=== PATIENT | female | born 1945 | race Caucasian/White ===

== ENCOUNTER 2020-02-23 08:24 | Day surgery (SDC) | payer MEDICARE, BC ==
[~2020-02-23 08:24] MED LIST: Acetaminophen/HYDROcodone 325-5 MG Tab PO PRN; Lactated Ringers 1,000 ML IV SCH
[2020-02-23] MEDS: Lactated Ringers 1,000 ML IV SCH (09:51)
[2020-02-23] MEDS: ceFAZolin 1 GM in Sodium Chloride 0.9% 50 ML IV ONE (10:32)
[2020-02-23] MEDS ORDERED: Lidocaine 0.5% 50 ML SDV ONE (11:11)
[2020-02-23] MEDS ORDERED: Ondansetron 4 MG/2 ML SDV ONE (11:11)
[2020-02-23] MEDS ORDERED: Midazolam 1 MG/ML 2 ML SDV ONE (11:11)
[2020-02-23 11:34] VITALS: BP 161/81; PULSE 52
[2020-02-23] MEDS: ceFAZolin 1 GM Vial ONE (13:16)
== END 2020-02-23 12:10 | disposition home or self-care (01) ==
LOC: LB.SDS 08:24
PROVIDERS: ATTEND Orthopaedic Surgery
DX: G56.01 Carpal tunnel syndrome, right upper limb (principal); I10 Essential (primary) hypertension; E78.5 Hyperlipidemia, unspecified; Z79.82 Long term (current) use of aspirin; Z79.899 Other long term (current) drug therapy; Z86.69 Personal history of other diseases of the nervous system and sense organs; Z98.890 Other specified postprocedural states; Z87.891 Personal history of nicotine dependence; Z82.49 Family history of ischemic heart disease and other diseases of the circulatory system
CPT/HCPCS: J0690; J2001; J2250; J2405; J7050; J7120

== ENCOUNTER 2024-12-23 20:08 | Emergency (ER) | payer MEDICARE, BC ==
[2024-12-23] MEDS: Atenolol 50 MG Tab PO ONE (20:58)
== END 2024-12-23 21:40 | disposition home or self-care (01) ==
LOC: LB.ED 20:08
DX: S00.11XA Contusion of right eyelid and periocular area, initial encounter (principal); I10 Essential (primary) hypertension; Z79.82 Long term (current) use of aspirin; Z79.899 Other long term (current) drug therapy; W01.198A Fall on same level from slipping, tripping and stumbling with subsequent striking against other object, initial encounter; Y93.89 Activity, other specified
CPT/HCPCS: 70486; 99283; 99284; A9270-GY